=== PATIENT | male | born 1975 | race Caucasian/White ===

== ENCOUNTER 2021-02-19 18:56 | Emergency (ER) | payer BC, SELFPAY ==
[2021-02-19 19:01] VITALS: BP 128/92; PULSE 58; RESP 16; TEMP 36.5; O2SAT 98
--- NOTE | 2021-02-19 19:13 | ED.GENADUL_ITS ---
Discharge Plan Disposition Patient Disposition: HOME Condition: Stable Discharge Details Clinical Impression: Laceration of foot, right Primary Care Provider: Unknown,Unknown ED Provider: Rick Chavarria Home Meds and New Rx's Prescriptions: Continued ibuprofen 600 mg Tablet 600 mg PO Q8H PRNRF: 0 Discharge Instructions Instructions: Laceration (ED) Additional Instructions: the sutures are absorbable and should dissolve on their own you will have a small amount of redness aroud the wound, if it spreads away from the wound or you have yellow/white discharge return to the closest emergency department Medical Decision Making 45 yo male was at his camp cutting wood with an axe when he missed and hit his right great toe. He denies falls or other injuries. HE has a 2cm laceration at the proximal lateral big toe, full range of motion and normal sensation. Wound is deep so will require sutures. no findings on exam to suggest tendon injury. I did recommend an xray to evaluate for fracture which he declined after being told risks and benefits of treating an open fracture of this area with antibiotics and not doing so can lead to worsening infection and loss of limb and he still declines an xray. Will irrigate and close with sutures. closed with 4 sutures after copious irrigation, he is willing to get xray now so this is ordered xray unremarkable on my read, remains stable. Will d/c and will call him in antibiotics if vrad sees a fracture I missed, pt in agreement with this plan Differential Diagnosis Differential Diagnosis: laceration, fracture Imaging Data Radiologic Study: Attestation: I personally reviewed and interpreted this imaging study as follows: Imaging: X-Ray My impression: no acute findings on xray HPI General Mode of arrival: ambulatory . Date/Time Provider Initiated Documentation: 02/19/21 18:59 . Limitations to Documentation: no limitations . Information obtained by: patient . History of Present Illness 45 year old M presents to the emergency department with the chief complaint of right foot laceration, described as moderate, Patient reports no radiation. and it has been constant. No relieving factors improve symptom(s), No exacerbating factors reported . Patient notes no other symptoms.. Related Data Home Medications Medication Instructions Recorded Confirmed ibuprofen 600 mg PO Q8H PRN 02/19/21 02/19/21 Allergies Allergy/AdvReac Type Severity Reaction Status Date / Time No Known Allergies Allergy Unverified 02/19/21 19:03 General Stated Complaint: Laceration MADAI: 4 Review of Systems All systems reviewed & are unremarkable except as noted in HPI and below Constitutional Constitutional: Denies chills, Denies fever(s) and Denies weakness Cardiovascular Cardiovascular: Denies chest pain and Denies dyspnea Respiratory Respiratory: Denies cough and Denies dyspnea Gastrointestinal Gastrointestinal: Denies abdominal pain, Denies nausea and Denies vomiting Musculoskeletal Musculoskeletal: Denies joint swelling Neurologic Neurologic: Denies weakness PFSH Social History Smoking/Tobacco Use Status: Never Smoking risk assessment performed?: Yes Alcohol Intake: current Alcohol Intake frequency: holidays/special occasions only Drug use: Never Substance use type: does not use Do you feel safe at home: Yes Do you feel safe in your relationship?: Yes Exam Const General: no acute distress Orientation: alert HENMT Head: normal to inspection Ears: external ears normal General nose exam: external nose normal Mouth: moist mucous membranes Eyes General: appearance normal, both eyes and all related structures Neck Neck: normal visual inspection Resp Effort & Inspection: normal respiratory effort and able to speak in complete sentences Cardio Rate: regular rate Skin General skin exam: no rashes or lesions noted Neuro General: patient alert and patient oriented x3 Extrem General: full ROM and capillary refill normal Psych Mental Status: mental status grossly normal Course Vital Signs Vital signs: Vital Signs Temperature 36.5 C 02/19/21 19:01 Pulse 58 L 02/19/21 19:01 Respiratory Rate 16 02/19/21 19:01 Blood Pressure 128/92 H 02/19/21 19:01 Pulse Oximetry 98 02/19/21 19:01 Temperature 36.5 C 02/19/21 19:01 Temperature Source Skin 02/19/21 19:01 Pulse 58 L 02/19/21 19:01 Respiratory Rate 16 02/19/21 19:01 Respiratory Effort Non-Labored 02/19/21 19:04 Blood Pressure 128/92 H 02/19/21 19:01 Blood Pressure Position Sitting 02/19/21 19:01 Pulse Oximetry 98 02/19/21 19:01 Oxygen Delivery Method Room Air 02/19/21 19:01 Oxygen Flow Rate 0 02/19/21 19:01 Pain Level 4 02/19/21 19:01 Procedures Laceration Laceration 1: Site: lower extremity Side (If applicable): right Size (cm): 2 Description: linear Depth: simple, single layer Local Anesthetic: Lidocaine 2% Amount of anesthesia used (mL): 6 Pre-repair: wound explored and irrigated extensively Skin layer closed with: vicryl Size (cm): 4-0 Number of sutures: 4 Technique: simple, interrupted
--- NOTE | 2021-02-19 19:55 | DI.RAD_ITS ---
Exam(s) XR FOOT RT COMPLETE EXAM: XR FOOT RT COMPLETE CLINICAL HISTORY: laceration s/p axe, ?fracture. TECHNIQUE: 2D digital imaging was performed. COMPARISON: No exams were available for comparison FINDINGS: There Is No evidence of acute fracture. There is an accessory ossicle at the level of the Lisfranc j oint between the bases of the great toe and 2nd metatarsals, consistent with os intermetatarseum. Th is corticated bone density measures 8 millimeters by 3.7 millimeters. This does not have the appeara nce of an acute fracture fragment, it being corticated. In addition, there is no os set of the compo nents of the main Lisfranc joint. No fractures of the metatarsal bases nor elsewhere. Some degenera tive changes noted in the metatarsophalangeal joint of the great toe with degenerative subarticular c ysts on the metatarsal head side of this joint. No finding seen more proximally in the foot. No oss eous tarsal coalition evident. IMPRESSION: DATA REPOSITORY: RADIATION DOSE DELIVERED:
--- NOTE | 2021-02-19 20:21 | DI.VRAD_ITS ---
PROCEDURE INFORMATION: Exam: XR Right Foot Exam date and time: 02/19/2021 7:33 PM Age: 45 years old Clinical indication: Injury or trauma; Other: Ax injury; Toes; Right great; Foreign body involvement not specified; Patient HX: Laceration by axe, ? FX TECHNIQUE: Imaging protocol: XR Right foot. Views: 3 or more views. COMPARISON: No relevant prior studies available. FINDINGS: Bones/joints: No suspicious osseous lytic or blastic lesion. No acute fracture or dislocation. There is well corticated 4-5 mm ossific fragment with rounded margins along the plantar, medial aspect of the 1st interphalangeal joint, chronic in appearance possibly accessory sesamoid versus sequela of old trauma. Soft tissues: Soft tissue edema of the right great toe. IMPRESSION: No acute fracture or dislocation. Dictated and Authenticated by: Pastor Sanders MD. Ordering:JESSICA Cabrera MD
== END 2021-02-19 20:30 | disposition home or self-care (01) ==
PROVIDERS: Emergency Provider Emergency Medicine
DX: S91.111A Laceration without foreign body of right great toe without damage to nail, initial encounter (principal); W27.0XXA Contact with workbench tool, initial encounter
CPT/HCPCS: 12001; 90471; 99284; 73630; 99283